=== PATIENT | female | born 1945 | race Caucasian/White ===

== ENCOUNTER 2016-11-15 13:09 | Outpatient (CLI) | payer OTHER | END 2016-11-15 20:05 | disposition home or self-care (01) | LOC: SUS 13:09 | PROVIDERS: ATTEND Family Medicine | DX: I65.23 Occlusion and stenosis of bilateral carotid arteries (principal) | CPT/HCPCS: 93880 ==

== ENCOUNTER 2016-12-13 15:05 | Outpatient (CLI) | payer OTHER | END 2016-12-13 20:04 | disposition home or self-care (01) | LOC: SRD 15:05 | PROVIDERS: ATTEND Family Medicine | DX: M25.571 Pain in right ankle and joints of right foot (principal); M25.471 Effusion, right ankle ==

== ENCOUNTER 2017-09-18 09:56 | Outpatient (CLI) | payer OTHER | END 2017-09-18 21:09 | disposition home or self-care (01) | LOC: SMA 09:56 | PROVIDERS: ATTEND Family Medicine | DX: Z12.31 Encounter for screening mammogram for malignant neoplasm of breast (principal) | CPT/HCPCS: 77067 ==